=== PATIENT | female | born 1990 | race African-American/Black ===

== ENCOUNTER 2016-10-19 00:04 | Inpatient (IN) ==
[2016-10-19] MEDS ORDERED: ACETAMINOPHEN 325 MG TABLET PO PRN ×2 (00:28→16:52)
[2016-10-19] MEDS ORDERED: BUTORPHANOL 2 MG/ML VIAL IV PRN (00:28)
[2016-10-19] MEDS ORDERED: ONDANSETRON 4 MG/2 ML VIAL IV PRN ×2 (00:28→16:52)
[2016-10-19] MEDS ORDERED: OXYTOCIN/LR 20 UNIT/1,000 ML BAG IV SCH (00:30)
[2016-10-19] MEDS: LACTATED RINGERS 1,000 ML IV SCH ×2 (00:45→09:05)
[2016-10-19] MEDS: AMPICILLIN INJ 2,000 MG in SODIUM CHLORIDE 0.9% 100 ML IV SCH ×3 (00:50→13:00)
[2016-10-19] MEDS ORDERED: ePHEDrine 50 MG/ML AMP IV PRN (01:15)
[2016-10-19] MEDS ORDERED: CITRIC ACID/SODIUM CITRATE 30 ML UDCUP PO ONE ×2 (01:15→09:00)
[2016-10-19] MEDS ORDERED: FAMOTIDINE 20 MG/2 ML VIAL IV ONE ×2 (01:15→09:00)
[2016-10-19] MEDS ORDERED: fentaNYL 2 MCG/ROPIV 0.2% EPID 150 ML EPIDURAL SCH (01:17)
[2016-10-19 01:50] LABS: Basophils % 0.2 % (0.0-0.8); Eosinophils % 0.3 % (0.00-10.9); Hematocrit 34.8 VOL% (35.7-47.0); Hemoglobin 11.8 GM/DL (12.0-16.0); Immature Granulocytes Absolute 0.11 #; Lymphocytes % 26.6 % (21.3-54.2); Mean Corpuscular HGB Conc 33.9 GM/DL (32-36); Mean Corpuscular Hemoglobin 29 PG (27-34); Mean Corpuscular Volume 86.8 FL (87-102); Mean Platelet Volume 12.6 FL (9.6-12.0); Monocytes # 1.3 10*3/uL (0.11-0.8); Monocytes % 11.2 % (1.7-12.7); Neutrophils # 6.8 10*3/uL (1.4-7.4); Neutrophils % 60.7 % (38.7-73.9); Platelet Count 160 T/CUMM (130-400); Red Blood Count 4.01 MC/CUMM (3.8-5.5); White Blood Count 11.3 T/CUMM (4-12)
--- NOTE | 2016-10-19 08:49 | OB/GYN History & Physical ---
History of Present Illness Chief complaint: 39 weeks gestation History of present illness: Ms. Steen is a 26 year old female Primigravida at 39 weeks gestation who presents for induction of labor at term. Home Medications Medication Instructions Recorded Confirmed Type No122/Iron/Folic Acid 1 tablet PO DAILY 06/24/16 10/19/16 History [ Multi Tablet] Allergies Allergy/AdvReac Type Severity Reaction Status Date / Time No Known Allergies Allergy Verified 06/24/16 17:31 12 point system: reviewed and no additional remarkable complaints except as stated Medical,Surgical,& Family Hx - Medical History Medical History: noncontributory Reproductive: History of: Sexually Transmitted Disorders (gc and ch 09/30) No history of: Ectopic , Complication - Surgical History Reproductive Surgeries: Patient denies;: Section, Gynecologic Surgery - Family History Family History: Reports;: Family Cancer, Family Hypertension (mgf) Denies;: Family Anesthesia Reaction, Family Diabetes, Family Heart Disease, Family Hematology, Family Psychiatric Problems, Family Stroke, Additional Family History - Social History Smoking Status: Never smoker Frequency of Alcohol Use: None Type of Drug Use: None 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 Vitals: Vital Signs Temp Pulse Resp BP 10/19/16 08:00 97.4 F L 71 19 113/63 10/19/16 04:00 98.1 F 76 18 129/73 10/19/16 00:08 97.6 F 103 H 20 123/79 General appearance: no acute distress - Antepartum / Post Antepartum Exam Cervix - Dilatation: 4 cm Effacement: 70% Station: -3 Rupture: Artificial rupture membranes with clear fluid Presentation: Vertex Heart Rate: 140s no decelerations [place]: Contractions irregular every 2-5 minutes Abdomen obstetrics: Present: bowel sounds normal Vagina: Present: normal moisture Uterus exam: Present: normal size, normal contour Anus/Rectum: Present: normal perianal skin - Head Head exam: Present: normocephalic - Neck Neck exam: Present: normal inspection - Respiratory Respiratory exam: Present: clear to auscultation bilaterally - Cardiovascular Cardiovascular exam: Present: regular rate and rhythm - GI/Abdominal GI/Abdominal exam: Present: normal bowel sounds, soft - Extremities Exam Extremities exam: Present: normal inspection - Back Exam Back exam: Present: normal inspection - Neurological Exam Neurological exam: Present: alert, oriented X3 - Psychiatric Psychiatric exam: Present: normal affect, normal mood - Skin Skin exam: Present: normal color, warm Assessment and Plan (1) 39 weeks gestation of Status: Acute Assessment and plan: Pitocin induction with expected vaginal delivery. Patient to have epidural upon request. Current Visit: Yes Results - Labs CBC & BMP: 10/19/16 01:40
[2016-10-19] MEDS ORDERED: WITCH HAZEL PADS 100/JAR TOP PRN (16:52)
[2016-10-19] MEDS ORDERED: RHO(D) IMMUNE GLOBULIN 300 MCG SYRINGE IM ONE (16:52)
[2016-10-19] MEDS ORDERED: MEASLES/MUMPS/RUBELLA VACCINE 0.5 ML VIAL SUBCUT ONE (16:52)
[2016-10-19] MEDS ORDERED: BISACODYL 10 MG SUPP RECTAL PRN (16:52)
[2016-10-19] MEDS ORDERED: BENZOCAINE 20%/MENTHOL 0.5% SPRAY 56 GM CAN TOP PRN (16:52)
[2016-10-19] MEDS ORDERED: DIPH/TET/ACEL PERT BOOSTER VACCINE 0.5 ML VIAL IM ONE (16:52)
[2016-10-19] MEDS ORDERED: OXYTOCIN/LR 20 UNIT/1,000 ML BAG IV ONE ×2 (16:52→22:48)
[2016-10-19] MEDS ORDERED: HYDROCORTISONE 2.5% RECTAL CREAM 30 GM TUBE TOP PRN (16:52)
[2016-10-19] MEDS ORDERED: oxyCODONE/ACETAMINOPHEN 5-325 MG TABLET PO PRN (16:52)
[2016-10-19] MEDS ORDERED: LANOLIN 50% CREAM 0.3 OZ TUBE TOP PRN (16:52)
--- NOTE | 2016-10-19 16:55 | Operative Note ---
Date of procedure: 10/19/16 Procedure Preformed: Patient delivered a liveborn female infant via spontaneous vaginal delivery. Baby's head was delivered in the OA position. The baby's nose mouth bulb suctioned the perineum. Anterior posterior shoulders followed by the body was delivered with ease. Status post internal after" was doubly clamped and cut. Umbilical cord had a true knot 1. Cord blood was sent. Placenta was delivered spontaneously and intact with three-vessel cord. The uterus was massaged and was found to confirm a well contracted. The patient sustained [ midline episiotomy] which was repaired with 2-0 chromic. Birthweight 7 lbs. 12 oz. Apgars 7 8. Baby and mother stable. And the procedure all sponge lap counts correct 2. Surgeon / Physician: Ta Gutierrez Post-op diagnosis: same Findings: Liveborn female infant weight 7 lbs. 12 oz. Apgars 7 8 Specimens: none sent Estimated blood loss: other (75 mL) Condition: stable Anesthesia: epidural Disposition: floor
[2016-10-19] MEDS: IBUPROFEN 800 MG TABLET PO PRN (22:41)
[2016-10-19] MEDS: oxyCODONE/ACETAMINOPHEN 5-325 MG TABLET PO PRN (22:43)
[2016-10-20] MEDS: DOCUSATE SODIUM 100 MG CAPSULE PO SCH ×3 (00:27→22:05)
[2016-10-20 02:52] LABS: Basophils % 0.1 % (0.0-0.8); Eosinophils % 0.2 % (0.00-10.9); Hematocrit 29.8 VOL% (35.7-47.0); Hemoglobin 10.1 GM/DL (12.0-16.0); Immature Granulocytes % 0.4 %; Immature Granulocytes Absolute 0.07 #; Lymphocytes # 2.8 10*3/uL (1.4-4.0); Lymphocytes % 17.6 % (21.3-54.2); Mean Corpuscular HGB Conc 33.9 GM/DL (32-36); Mean Corpuscular Hemoglobin 29 PG (27-34); Mean Corpuscular Volume 86.9 FL (87-102); Monocytes # 1.8 10*3/uL (0.11-0.8); Monocytes % 11.4 % (1.7-12.7); Neutrophils # 11.1 10*3/uL (1.4-7.4); Neutrophils % 70.3 % (38.7-73.9); Platelet Count 150 T/CUMM (130-400); Red Blood Count 3.43 MC/CUMM (3.8-5.5); Red Cell Distribution Width 15.5 % (9.3-17.3); White Blood Count 15.8 T/CUMM (4-12)
[2016-10-20] MEDS: IBUPROFEN 800 MG TABLET PO PRN ×2 (08:49→22:05)
[2016-10-20] MEDS: oxyCODONE/ACETAMINOPHEN 5-325 MG TABLET PO PRN (08:51)
--- NOTE | 2016-10-20 08:51 | OB/GYN Progress Note ---
Assessment and Plan (1) 39 weeks gestation of Status: Acute Assessment and plan: Pitocin induction with expected vaginal delivery. Patient to have epidural upon request. Current Visit: Yes (2) Vaginal delivery Status: Acute Assessment and plan: Routine care with discharge planning in a.m. 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 She is breast-feeding and ambulating well. 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 MENDER - Constitutional Vitals: Vital Signs Temp Pulse Resp BP Pulse Ox 10/20/16 07:00 20 10/20/16 05:15 18 10/20/16 04:00 98.1 F 87 20 128/68 96 10/20/16 00:00 97.5 F L 85 20 119/57 95 10/19/16 22:41 83 20 121/64 100 10/19/16 21:45 93 H 20 123/69 100 10/19/16 21:15 99 H 20 132/72 98 10/19/16 20:45 99.1 F 97 H 20 122/72 99 10/19/16 19:09 98.1 F 99 H 18 131/71 - Antepartum / Post Post Exam Abdomen obstetrics: Present: bowel sounds normal Vagina: Present: normal moisture Uterus exam: Present: normal size, normal contour Anus/Rectum: Present: normal perianal skin - Head Head exam: Present: normocephalic - Respiratory Respiratory exam: Present: clear to auscultation bilaterally - Cardiovascular Cardiovascular exam: Present: regular rate and rhythm - GI/Abdominal GI/Abdominal exam: Present: normal bowel sounds, soft (Uterus firm and well contracted at the level of the umbilicus) - Extremities Exam Extremities exam: Present: normal inspection - Back Exam Back exam: Present: normal inspection - Neurological Exam Neurological exam: Present: alert, oriented X3 - Psychiatric Psychiatric exam: Present: normal affect, normal mood - Skin Skin exam: Present: normal color, warm Results - Labs CBC & BMP: 10/20/16 02:29
--- NOTE | 2016-10-20 10:27 | Anesthesia Post-Op ---
Anesthesia Post OP - Post Ansesthetic Evaluation Patient seen in post op: Yes Resp: within normal limits CV: within normal limits Mental: within normal limits Temp: within normal limits Wved-Op-Nxcouaxav: within normal limits Nausea and Vomiting: within normal limits Pain: within normal limits
--- NOTE | 2016-10-21 09:04 | Discharge Summary ---
Hospital Course - Hospital Course Hospital Course: This is a 26-year-old female admitted at 39 weeks for induction of labor at term. Patient subsequent delivered a liveborn female infant via spontaneous vaginal delivery. Hospital course unremarkable day #2 she was ready for discharge. Patient is breast and bottlefeeding and plans for NuvaRing as her method of contraception Diagnosis - Discharge Diagnosis (1) 39 weeks gestation of Status: Acute (2) Vaginal delivery Status: Acute Discharge Plan - Discharge Data Disposition: Disch To Home/Self Care Condition at Discharge: Stable Discharge Diet: advance to your usual diet Activity: resume usual activities as tolerated (Pelvic rest) Hygiene: no restrictions Weight Bearing at Discharge: full weight bearing Driving: no restrictions Contact your physician if you experience:: fever over 101, Difficulty voiding, Redness or swelling, Nausea/Vomiting, Shortness of breath, Bleeding, pain uncontrolled by pain medications - Discharge Medications New Ibuprofen Tab [Motrin Tab] 800 mg PO Q6H PRN #30 tablet PRN Reason: Pain Moderate (4-7) No Action No122/Iron/Folic Acid [ Multi Tablet] 1 tablet PO DAILY - Follow Up or Referral Follow Up: Ta Gutierrez MD [Physician] - 1 Month - Forms/Instructions Exam - Constitutional Vitals: Period Temp Pulse Resp BP Sys/[place] Pulse Ox Last 24 Hr 97.2 F-98.1 F 79-89 16-20 122-131/63-80 98-100 General appearance: no acute distress - Head Head exam: Present: normocephalic - Neck Neck exam: Present: normal inspection - Respiratory Respiratory exam: Present: clear to auscultation bilaterally - Cardiovascular Cardiovascular exam: Present: regular rate and rhythm - GI/Abdominal GI/Abdominal exam: Present: normal bowel sounds, soft - Extremities Exam Extremities exam: Present: normal inspection - Back Exam Back exam: Present: normal inspection - Neurological Exam Neurological exam: Present: alert, oriented X3 - Psychiatric Psychiatric exam: Present: normal affect, normal mood - Skin Skin exam: Present: normal color, warm DS: Provider Date of admission: 10/19/16 00:28 Primary care physician: . No PCP Attending physician on admission: Ta Gutierrez MD Consults: 10/19/16 00:28 Consult to Anesthesiology [CONS] Routine Consulting Provider: Reason for Anesthesiology: Epidural Consult Comment: Epidural for pain managment 10/19/16 16:52 Consult to Airdrop Systems Technician [CONS] Routine Consult Airdrop Systems Technician: Breast Feeding Discharging clinician: Ta Gutierrez MD
[2016-10-21] MEDS: DOCUSATE SODIUM 100 MG CAPSULE PO SCH (09:05)
[2016-10-21 10:52] VITALS: BP 125/80
== END 2016-10-21 12:40 | disposition home or self-care (01) | DRG 775 ==
LOC: N.LDOUT 00:04 → N.LD 00:07 → N.OB 21:23
PROVIDERS: ADMIT Obstetrics & Gynecology; ATTEND Obstetrics & Gynecology